=== PATIENT | male | born 1990 | race African-American/Black ===

== ENCOUNTER 2023-04-07 16:55 | Emergency (ER) | payer OTHER ==
[~2023-04-07] VITALS: Ht 182.9 cm; Wt 107.5 kg
[2023-04-07 17:11] VITALS: BP 159/108; PULSE 105; RESP 18; TEMP 98.2; O2SAT 95
[2023-04-07] MEDS ORDERED: MORPHINE SULFATE ONE (17:20)
[2023-04-07] MEDS: MORPHINE SULFATE IM STA (17:21)
[2023-04-07 18:08] VITALS: BP 136/84; PULSE 87; RESP 18; O2SAT 98
[2023-04-07] MEDS ORDERED: FLEXERIL ONE (18:13)
[2023-04-07] MEDS: FLEXERIL PO STA (18:13)
== END 2023-04-07 18:19 | disposition home or self-care (01) ==
LOC: ER 16:55
DX: S10.93XA Contusion of unspecified part of neck, initial encounter (principal); S20.229A Contusion of unspecified back wall of thorax, initial encounter; S70.02XA Contusion of left hip, initial encounter; S80.01XA Contusion of right knee, initial encounter; V99.XXXA Unspecified transport accident, initial encounter; Y93.89 Activity, other specified; Y92.89 Other specified places as the place of occurrence of the external cause; Y99.8 Other external cause status
CPT/HCPCS: 72125; 72128; 72131; 73502; 73560; 96372; 99285